=== PATIENT | female | born 1995 | race Caucasian/White ===

== ENCOUNTER 2023-10-28 15:03 | Outpatient (AMB) | payer OTHER, SELFPAY ==
--- NOTE | 2023-10-28 14:56 | MHC.PC.OV ---
Vital Signs 10/28/23 15:15 Height 5 ft 4.17 in Weight 182 lb 2 oz BMI 31.1 BP 100/70 Blood Pressure Location Lt brachial Position Sitting Respiration 12 Pulse 77 Pulse Source Pulse Oximeter Temp 98.4 F Temp Source Oral Pulse Oximetry (%) 98 Oxygen Delivery Method Room Air Intake Visit Reasons: [facility] care/ autism paperwork updated Intake Note: New patient visit Allergies No Known Allergies Allergy (Verified 10/28/23 15:09) Tobacco use date assessed: 10/28/23 Dental Screening Dental Screen Date: 10/28/23 Did you have a dental visit in the last 12 months?: Yes Did you have a dental problem in the last 6 months where you did not have access to dental care?: No Was dental information given to patient?: Yes HPI HPI Comments History of Present Illness Details This is a 27-year-old female with a past medical history of autism spectrum disorder presenting to [facility]. Records transfer pending. At 5 years old she was diagnosed with autism and severe developmental delay. She was in special education programs her entire life. She says her diagnosis was reconfirmed in 2016. Kimo Mei is her therapist for the past 6 years at [facility]. He has forms from her school for accommodations. She will have the forms and evaluation from 2016 faxed to this office. She will also give her therapist permission to speak with me. Her school does not accept an IEP. She attends [employer] in [place]. 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 She requests academic accommodations for difficulty with written comprehension and writing. She requests housing accommodations for sensory needs. She has sensory issues with texture, light sensitivity and loud noises. The patient is interested in genetic testing. Her mother of stage IV cancer this past Diana age 53. Her maternal great grandmother had ovarian cancer in her 70s. She endorses PMDD symptoms. For 2 weeks before menses she feels fatigued, depressed, self-critical, has mood swings, overeats and has an increase in autistic meltdowns. She is on NuvaRing. She is interested in starting anxiety medication. ROS: Constitutional: No unexplained weight loss, fever, chills, fatigue or night sweats. Gastrointestinal: No anorexia, nausea, vomiting or diarrhea. No abdominal pain or blood in stool. Psychiatric: see phq-9. Transient thoughts of self harm, no plan to harm herself and speaks about this with therapist. Physical exam: Constitutional: Alert, in no distress. Neck: Supple, Full range of motion. No lymphadenopathy. Respiratory: Clear to auscultation. Cardiovascular: S1 S2 regular. No murmurs. Gastrointestinal: Abdomen soft, non-tender, non-distended. Normal bowel sounds. No palpable masses. Extremities: Warm and well perfused. [facility] Medical History (Updated 10/28/23 @ 16:02 by MACRINA Latfi) IBS (irritable bowel syndrome) Autism Anxiety PMDD (premenstrual dysphoric disorder) Surgical History (Updated 10/28/23 @ 15:45 by MACRINA Latif) History of eye surgery Family History (Updated 10/28/23 @ 16:03 by MACRINA Latif) Father Suicide Substance abuse FH: mental illness Mother Stomach cancer Maternal Aunt Asthma HTN (hypertension) Diabetes Unknown Ovarian cancer Social History (Updated 10/28/23 @ 15:13 by Velia Rincon CMA) Housing: House (k) Housing Other:: Hopes around between a house and apartment ( her friends) Patient Tobacco Use Status: Former Tobacco user Years Smoked: 1.5 years, quit 5 years ago, social smoker e-Cigarette/Vaping Use: Never Used Substance Use Type: Marijuana service: No Current occupational status: employed 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 ) Hearing needs: No Vision needs: No Questionnaire PHQ-9 Over the last 2 weeks, how often have you been bothered by any of the following problems? 1. Little interest or pleasure in doing things: several days 2. Feeling down, depressed, or hopeless: more than half the days 3. Trouble falling or staying asleep, or sleeping too much: nearly every day 4. Feeling tired or having little energy: nearly every day 5. Poor appetite or overeating: more than half the days 6. Feeling bad about yourself - or that you are a failure or have let yourself or your family down: more than half the days 7. Trouble concentrating on things, such as reading the newspaper or watching television: several days 8. Moving or speaking so slowly that other people could have noticed. Or the opposite - being so fidgety or restless that you have been moving around a lot more than usual: more than half the days 9. Thoughts that you would be better off or of hurting yourself in some way: nearly every day Total score: 19 Depression Screening Interpretation: Positive Depression Screening Follow-up: Existing condition, In treatment and New Medication prescribed Depression Screening Done: Yes 35066 - PHQ-9 Billing: Yes Source: Developed by Drs. Braeden Mendiola, Brittany Murillo, Robinson Ramey and colleagues, with an educational arnulfo from [employer]. Thrive Questionnaire Date Thrive assessed: 10/28/23 I am a: Patient What is your living situation today?: I have a steady place to live Within the past 12 months, did the food you bought not last and you didn't have the money to get more?: Never true Within the past 12 months, did you worry whether your food would run out before you got money to buy more?: Never true Do you have trouble paying for medicines?: No Do you have trouble getting transportation to medical appointments?: No Do you have trouble paying your heating and electricity bill?: No Do you have trouble taking care of your child, family member or friend?: No Do you have trouble with day-to-day activities such as bathing, preparing meals, shopping, managing finances, etc.?: No Are you currently unemployed and looking for a job?: No Are you interested in more education?: Yes Please select the resources that you would like help with: Education and None Currently or been in a relationship where the following occur: No concerns reported THRIVE Score: 0 AUDIT C Alcohol Use Questionnaire (AUDIT-C) 1. How often do you have a drink containing alcohol?: Never 3. How often do you have six or more drinks on one occasion?: Never Total Score: 0 LUCINA-7 AMB Questionnaire LUCINA-7 Date LUCINA - 7 assessed: 10/28/23 Feeling nervous, anxious, or on edge: 2 = More than half the days Not being able to stop or control worryin = Several days Worrying too much about different things: 1 = Several days Trouble relaxin = Several days Being so restless that it is hard to sit still: 1 = Several days Becoming easily annoyed or irritable: 3 = Nearly every day Feeling afraid as if something awful might happen: 1 = Several days Total LUCINA-7 score (0-4 normal; 5-9 mild; 10-14 moderate; 15-21 severe): 10 Source: Developed by Drs. Braeden Mendiola, Brittany Murillo, Robinson Ramey and colleagues, with an educational arnulfo from [employer]. LUCINA-7 Assessment Billing LUCINA-7 Assessment Tool: LUCINA-7 Assessment 87739 Physical exam (Primary Care) Vital Signs: Last Vital Signs Temp 98.4 F 10/28/23 15:15 Pulse 77 10/28/23 15:15 Resp 12 10/28/23 15:15 BP 100/70 10/28/23 15:15 Pulse Ox 98 10/28/23 15:15 Oxygen Delivery Method Room Air 10/28/23 15:15 BMI result Body Mass Index 31.1 Tobacco/Smoking Status: Tobacco use Status Tobacco use date assessed 10/28/23 10/28/23 15:20 Patient Tobacco Use Status Former Tobacco user 10/28/23 15:20 e-Cigarette/Vaping Use Never Used 10/28/23 15:20 Depression Screening Interpretation: Positive Depression Screening Follow-up: Existing condition, In treatment and New Medication prescribed Currently or been in a relationship where the following occur: No concerns reported Assessment and Plan Assessment & Plan (1) PMDD (premenstrual dysphoric disorder): Code(s): F32.81 - Premenstrual dysphoric disorder (2) Anxiety: Code(s): F41.9 - Anxiety disorder, unspecified (3) Autism: Code(s): F84.0 - Autistic disorder Plan Patient is referred to genetic counseling because she is interested in testing for genetic cancer syndromes due to her family history of stomach and ovarian cancer on her maternal side. She will continue therapy. She will give authorization for her therapist to speak with me and fax forms for school to our office. See HPI. She meets criteria for PMDD. She is on contraceptive. She would like to try medication. Initially stated she would only like to do a p.r.n. medication, but that is not indicated for treatment of PMDD and would not help with the majority of her symptoms. I prescribed hydroxyzine 10-20 mg twice daily as needed for anxiety. Cautioned it can cause sedation and drowsiness and not to drive or operate heavy machinery on this medication. She is willing try low-dose SSRI after discussion. Black box warning and side effects reviewed. Start fluoxetine 10 mg daily. Discuss we will likely need to titrate the dose to get an effect. Full effects on the dosage may take 4-6 weeks. Follow up in 4 weeks via telehealth for anxiety and PMDD med check. Orders: Referrals Genetics Referral Z80.9 - Family history of malignant neoplasm, unspecified Medications: New fluoxetine 10 mg PO DAILY 30 tabs 1RF hydroxyzine HCl 10 - 20 mg (1 - 2 x 10 mg) PO BID PRN 30 tabs 1RF anxiety Coding Level of Care Code New Pt Level 4 (89739) Complex EM visit Add On G2211 Diagnoses PMDD (premenstrual dysphoric disorder) F32.81 Anxiety F41.9 Autism F84.0 Additional Codes LUCINA-7 Assessment Billing - LUCINA-7 Assessment Tool: LUCINA-7 Assessment 33033 ([id number])
[2023-10-28 15:15] VITALS: BP 100/70; PULSE 77; RESP 12; TEMP 36.9; O2SAT 98; BMI 31.1
== END 2023-10-28 15:59 | disposition home or self-care (01) ==
PROVIDERS: PCP Physician Assistant; Visit Provider Physician Assistant Medical
DX: F32.81 Premenstrual dysphoric disorder (principal); F41.9 Anxiety disorder, unspecified; F84.0 Autistic disorder
CPT/HCPCS: 96127; 99204; G2211

== ENCOUNTER 2023-11-22 09:50 | Outpatient (AMB) | payer OTHER, SELFPAY ==
--- NOTE | 2023-11-22 09:45 | A.OFFPC_ITS ---
Intake Visit Reasons: recheck anxiety medication telehealth Intake Note: Follow up anxiety medication. Forms for school Allergies No Known Allergies Allergy (Verified 10/28/23 15:09) Tobacco use date assessed: 10/28/23 Dental Screening Dental Screen Date: 10/28/23 HPI HPI Comments History of Present Illness Details This is a 28-year-old female with a past medical history of PMDD, anxiety, autism and IBS presenting for a medication review via telehealth. Anxiety/PMDD-She notices 10-15% reduction in symptoms since starting Fluoxetine 10 mg a few weeks ago. She wants to try to increase to 20 mg. She has some vivid dreams on the medication, but it does not bother her. She had diarrhea initially which resolved. She denies SI/HI. Her school sent forms for accommodations. They will be completed. Patient requests refill on NuvaRing. She does not have a engineered wood designer currently. I refilled the medication and referred her to Gynecology for an annual exam. [facility] Medical History (Updated 10/28/23 @ 16:02 by MACRINA Latif) IBS (irritable bowel syndrome) Autism Anxiety PMDD (premenstrual dysphoric disorder) Surgical History (Updated 10/28/23 @ 15:45 by MACRINA Latif) History of eye surgery Family History (Updated 10/28/23 @ 16:03 by MACRINA Latif) Father Suicide Substance abuse FH: mental illness Mother Stomach cancer Maternal Aunt Asthma HTN (hypertension) Diabetes Unknown Ovarian cancer Social History (Updated 10/28/23 @ 15:13 by Velia Rincon CMA) Housing: House (k) Housing Other:: Hopes around between a house and apartment ( her friends) Patient Tobacco Use Status: Former Tobacco user Years Smoked: 1.5 years, quit 5 years ago, social smoker e-Cigarette/Vaping Use: Never Used Substance Use Type: Marijuana service: No Current occupational status: employed 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 ) Hearing needs: No Vision needs: No Questionnaire PHQ-9 Over the last 2 weeks, how often have you been bothered by any of the following problems? 1. Little interest or pleasure in doing things: not at all 2. Feeling down, depressed, or hopeless: not at all 3. Trouble falling or staying asleep, or sleeping too much: several days 4. Feeling tired or having little energy: several days 5. Poor appetite or overeating: several days 6. Feeling bad about yourself - or that you are a failure or have let yourself or your family down: several days 7. Trouble concentrating on things, such as reading the newspaper or watching television: not at all 8. Moving or speaking so slowly that other people could have noticed. Or the opposite - being so fidgety or restless that you have been moving around a lot more than usual: not at all 9. Thoughts that you would be better off or of hurting yourself in some way: not at all Total score: 4 Depression Screening Interpretation: Positive Depression Screening Done: Yes 80902 - PHQ-9 Billing: Yes Source: Developed by Drs. Braeden Mendiola, Robinson Lambert and colleagues, with an educational arnulfo from [employer]. Thrive Questionnaire Date Thrive assessed: 10/28/23 LUCINA-7 AMB Questionnaire LUCINA-7 Date LUCINA - 7 assessed: 11/22/23 Feeling nervous, anxious, or on edge: 0 = Not at all Not being able to stop or control worryin = Not at all Worrying too much about different things: 0 = Not at all Trouble relaxin = Not at all Being so restless that it is hard to sit still: 0 = Not at all Becoming easily annoyed or irritable: 0 = Not at all Feeling afraid as if something awful might happen: 0 = Not at all Total LUCINA-7 score (0-4 normal; 5-9 mild; 10-14 moderate; 15-21 severe): 0 Source: Developed by Drs. Braeden Mendiola, Robinson Lambert and colleagues, with an educational arnulfo from [employer]. LUCINA-7 Assessment Billing LUCINA-7 Assessment Tool: LUCINA-7 Assessment 74110 Physical exam (Primary Care) Tobacco/Smoking Status: Tobacco use Status Tobacco use date assessed 10/28/23 11/22/23 09:49 Patient Tobacco Use Status Former Tobacco user 11/22/23 09:49 e-Cigarette/Vaping Use Never Used 11/22/23 09:49 PHQ-9: PHQ-9 Score PHQ-9: Total score 4 11/22/23 10:27 Depression Screening Interpretation: Positive Thrive Assessment: Date of Thrive Assessment Date Thrive assessed 10/28/23 11/22/23 09:49 Telehealth Telehealth Telehealth Platform: Telephone Location of provider rendering services: practice address Location of patient: address on file Patient Identification confirmed using: Name, : Yes Telehealth method: voice only Patient verbally consented to treatment: Yes Patient verbally consented to billing insurance company: Yes Patient informed of any privacy concerns related to visit: Yes Minutes spent on Phone/Video with Pt.: 11 Assessment and Plan Assessment & Plan (1) PMDD (premenstrual dysphoric disorder): Code(s): F32.81 - Premenstrual dysphoric disorder (2) Anxiety: Code(s): F41.9 - Anxiety disorder, unspecified Plan She sees a therapist regularly. Increase fluoxetine to 20 mg daily. Reviewed side effects and black box warning. She has not needed to use hydroxyzine. Follow up in 4-6 weeks for med check via telehealth. Orders: Referrals VEHICLE CARE SPECIALIST Referral Z01.419 - Encounter for gynecological examination (general) (routine) without abnormal findings Medications: New fluoxetine 20 mg PO DAILY 30 tabs 1RF Changed From etonogestrel-ethinyl estradiol 0.12-0.015 mg/24 hr vaginal To etonogestrel-ethinyl estradiol 0.12-0.015 mg/24 hr One ring, inserted vaginally and left in place continuously for 3 consecutive weeks, then removed for 1 week. A new ring is inserted 7 days after the last was removed. 1 vag ring vaginal Q4W 3 ea 2RF Discontinued fluoxetine Discontinued Reason: Doctor's Order 10 mg PO DAILY 30 tabs 1RF Coding Level of Care Code Est Pt Level 3 (66657) Diagnoses PMDD (premenstrual dysphoric disorder) F32.81 Anxiety F41.9 Additional Codes LUCINA-7 Assessment Billing - LUCINA-7 Assessment Tool: LUCINA-7 Assessment 59473 ([id number]) Time Spent (min) 16
== END 2023-11-22 14:04 | disposition home or self-care (01) ==
LOC: HO.HMGFM 09:50
PROVIDERS: PCP Physician Assistant; Visit Provider Physician Assistant Medical
DX: F32.81 Premenstrual dysphoric disorder (principal); F41.9 Anxiety disorder, unspecified
CPT/HCPCS: 96127; 99213

== ENCOUNTER 2024-03-27 11:57 | Outpatient (REF) | payer OTHER, SELFPAY | END 2024-03-27 11:58 | disposition home or self-care (01) | LOC: HO.LNP 11:57 | PROVIDERS: PCP Physician Assistant; Visit Provider Obstetrics & Gynecology | DX: Z01.419 Encounter for gynecological examination (general) (routine) without abnormal findings (principal) | CPT/HCPCS: 88175; 99385; 99459 ==

== ENCOUNTER 2024-03-27 11:57 | Outpatient (AMB) | payer OTHER, SELFPAY ==
--- NOTE | 2024-03-27 11:57 | A.OFFVIS_ITS ---
Vital Signs 03/27/24 11:58 Height 5 ft 4 in Weight 180 lb BMI 30.9 BP 122/78 Intake Visit Reasons: New patient Annual Intake Note: no concerns Cranberry Grower Required: No Information Interpreted: non-clinical & clinical Louver Mortiser Operator: Louver Mortiser Operator Present (Claire LEWIS) Accompanied by: Self / Same As Patient Allergies No Known Allergies Allergy (Verified 03/27/24 11:59) Is last menstrual period known: Yes Last menstrual period: 03/13/24 HPI Comments Details: Presenting for annual exam. No complaints. Using NuvaRing for contraception, requesting a refill. [facility] Medical History IBS (irritable bowel syndrome) Autism Anxiety PMDD (premenstrual dysphoric disorder) Surgical History History of eye surgery Family History Father Suicide Substance abuse FH: mental illness Mother Stomach cancer Maternal Aunt Asthma HTN (hypertension) Diabetes Unknown Ovarian cancer Social History Housing: House (k) Housing Other:: Hopes around between a house and apartment ( her friends) Patient Tobacco Use Status: Former Tobacco user Years Smoked: 1.5 years, quit 5 years ago, social smoker e-Cigarette/Vaping Use: Never Used Substance Use Type: Marijuana service: No Current occupational status: employed 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 ) Hearing needs: No Vision needs: No Female Reproductive History Menstrual Date of last menstrual period: 03/13/24 control method: vaginal ring Review of Systems Const All systems reviewed & are unremarkable except as noted in HPI and below Card Reports as per HPI Resp Reports as per HPI GI Reports as per HPI and Reports no additional complaints Reports as per HPI Physical Exam Vital Signs: Last Vital Signs BP 122/78 03/27/24 11:58 BMI result Body Mass Index 30.9 Const General: cooperative, healthy appearing and comfortable Chest Chest palpation & inspection: normal inspection of the chest and normal palpation of entire chest wall Breast/axilla inspection: normal inspection of the breasts and normal inspection of the axillae Breast/axilla palpation: normal palpation of the breasts, normal palpation of the axillae and no axillary lymphadenopathy Resp Effort & Inspection: normal respiratory effort Auscultation: clear to auscultation bilaterally Percussion: percussion normal Cardio Palpation: normal PMI Rate: regular rate Rhythm: regular rhythm Heart sounds: no murmurs and no rubs Peripheral pulses: Peripheral pulses 2+ throughout GI Inspection: Yes normal to inspection Palpation (GI): Soft to palpation, nontender, no guarding, not rigid and No hepatosplenomegaly present Percussion: Yes normal to percussion Auscultation: normal bowel sounds Rectal Exam - Female: deferred General: Yes bladder normal to palpation External Female Exam: No lesion Speculum Exam - Vagina: normal appearance of the vagina, normal palpation, normal vaginal discharge and not erythematous Speculum Exam - Cervix: normal appearance of the cervix and normal palpation Bimanual exam- vagina & uterus: normal bimanual exam, normal palpation, uterine size normal, bladder normal to palpation, consistency normal and normal palpation Bimanual Exam- Adnexa, other: normal adnexae, no masses and no tenderness Assessment & Plan Assessment & Plan (1) Well woman exam: Code(s): Z01.419 - Encounter for gynecological examination (general) (routine) without abnormal findings Category: Medical Plan: Pap smear done. NuvaRing refill sent to the patient's pharmacy for years. Counseled the patient about the recommended dietary allowance of 1000 mg of Calcium & 600 IU of vitamin D. The patient was instructed to perform monthly self-breast exams and to schedule an annual exam in a year; All questions answered and the patient verbalized understanding. Instructed the patient to schedule annual exam in a year Orders: Orders Pap Smear Today Z01.419 - Encounter for gynecological examination (general) (routine) without abnormal findings Medications: Refilled etonogestrel-ethinyl estradiol 0.12-0.015 mg/24 hr One ring, inserted vaginally and left in place continuously for 3 consecutive weeks, then removed for 1 week. A new ring is inserted 7 days after the last was removed. 1 vag ring vaginal Q4W 3 ea 3RF Coding Level of Care Code New Pt Prev Care 18-39yr(72527 Diagnoses Well woman exam Z01.419
[2024-03-27 11:58] VITALS: BP 122/78; BMI 30.9
--- OUTSIDE RECORDS SUMMARY | 2024-03-27 12:01 | XMS_ITS ---
Author Name [facility] Organization Unknown History of Medication Use Medication Directions Dispensed Refills Start Date End Date Stat dicyclomine 10 mg capsule TAKE 1 CAPSULE (10 MG TOTAL) BY MOUTH 4 (FOUR) TIMES A DAY NEEDED FOR CRAMPING. TAKE 1 CAPSULE (10 MG TOTAL) BY MOUTH 4 (FOUR) TIMES A DAY NEEDED FOR CRAMPING. 08/23/2021 completed omeprazole 20 mg capsule,delayed release TAKE 1 CAPSULE BY MOUTH EVERY DAY IN THE MORNING BEFORE BREAKFAST TAKE 1 CAPSULE BY MOUTH EVERY DAY IN THE MORNING BEFORE BREAKFAST 08/23/2021 completed dicyclomine (BENTYL) 20 MG tablet Take 0.5 tablets (10 mg total) by mouth 4 (four) times a day as needed for cramping. 05/15/2022 active sulfamethoxazole 800 mg-trimethoprim 160 mg tablet TAKE 1 TABLET BY MOUTH TWICE A DAY TAKE 1 TABLET BY MOUTH TWICE A DAY 08/23/2021 completed dicyclomine 10 mg capsule TAKE 1 CAPSULE (10 MG TOTAL) BY MOUTH 4 (FOUR) TIMES A DAY NEEDED FOR CRAMPING. TAKE 1 CAPSULE (10 MG TOTAL) BY MOUTH 4 (FOUR) TIMES A DAY NEEDED FOR CRAMPING. 08/23/2021 completed ciprofloxacin 0.3 %-dexamethasone 0.1 % ear drops,suspension ADMINISTER 4 DROPS INTO BOTH EARS 2 (TWO) TIMES A DAY. USE FOR 1 WEEK ONLY ADMINISTER 4 DROPS INTO BOTH EARS 2 (TWO) TIMES A DAY. USE FOR 1 WEEK ONLY 08/23/2021 completed nitrofurantoin monohydrate/macrocrys tals 100 mg capsule TAKE 1 CAPSULE (100 MG TOTAL) BY MOUTH 2 (TWO) TIMES A DAY WITH MEALS. DISPENSE MACROBID. TAKE 1 CAPSULE (100 MG TOTAL) BY MOUTH 2 (TWO) TIMES A DAY WITH MEALS. DISPENSE MACROBID. 08/23/2021 completed terconazole (TERAZOL 3) 80 MG vaginal suppository Insert 1 suppository (80 mg total) into the vagina nightly. 05/15/2022 active metroNIDAZOLE (METROGEL) 0.75 % vaginal gel Insert 37.5 mg (1 Applicatorful total) into the vagina nightly. 05/21/2022 active None recorded. (No additional sig information) 08/23/2021 completed dicyclomine 20 mg tablet TAKE 0.5 TABLETS (10 MG TOTAL) BY MOUTH 4 (FOUR) TIMES A DAY NEEDED FOR CRAMPING. TAKE 0.5 TABLETS (10 MG TOTAL) BY MOUTH 4 (FOUR) TIMES A DAY NEEDED FOR CRAMPING. 08/23/2021 completed Problems Problem Status Onset Date Problem Type Date of Resoluti on Source BV (bacterial vaginosis) active [facility]osisAct [facility] Other irritable bowel syndrome active 2021-06-05 ProblemAct [facility]
== END 2024-03-27 12:10 | disposition home or self-care (01) ==
LOC: HO.HWS 11:57
PROVIDERS: PCP Physician Assistant; Visit Provider Obstetrics & Gynecology
DX: Z01.419 Encounter for gynecological examination (general) (routine) without abnormal findings (principal)
CPT/HCPCS: 99385